=== PATIENT | female | born 1955 | race Caucasian/White ===

== ENCOUNTER → 2020-01-11 | Outpatient (CLI) | payer BC ==
--- NOTE | 2020-01-11 15:24 | RADIOLOGY REPORT (SQ) ---
EXAM DESCRIPTION: FOREARM LEFT COMPLETED DATE/TIME: 01/11/2020 1:23 pm REASON FOR STUDY: M79.609 PAIN IN UNSPECIFIED LIMB, R60.9 EDEMA, UNSPECIFIED, M79.609 PAIN IN UNSPE CIFIED LIMB R60.9 EDEMA, UNSPECIFIED COMPARISON: None. NUMBER OF VIEWS: Two views. TECHNIQUE: Two radiographic images acquired of the left forearm, including elbow and wrist in at [address] one projection. LIMITATIONS: None. FINDINGS: MINERALIZATION: Normal. BONES: No fracture identified. SOFT TISSUES: Likely anterior elbow joint effusion. No radiopaque foreign body. OTHER: No other significant finding. IMPRESSION: No evidence of acute bony abnormality. Apparent anterior elbow joint effusion which can be seen with occult radial head fractures. TECHNICAL DOCUMENTATION: JOB ID: [id number] 2010 [employer]- All Rights Reserved Reading location - IP/workstation name: [email or web address]
--- NOTE | 2020-01-11 15:27 | RADIOLOGY REPORT (SQ) ---
EXAM DESCRIPTION: ELBOW LEFT OVER 2 VIEWS IMAGES COMPLETED DATE/TIME: 01/11/2020 1:23 pm REASON FOR STUDY: M79.609 PAIN IN UNSPECIFIED LIMB, R60.9 EDEMA, UNSPECIFIED, M79.609 PAIN IN UNSPE CIFIED LIMB R60.9 EDEMA, UNSPECIFIED COMPARISON: None. NUMBER OF VIEWS: Four views. TECHNIQUE: AP, lateral, and both oblique radiographic images acquired of the left elbow. LIMITATIONS: None. FINDINGS: MINERALIZATION: Normal. BONES: Small calcific density along the lateral epicondyle without clear donor site. Possibly small fracture fragment or calcified joint body. JOINT: Prominent anterior joint effusion. SOFT TISSUES: No soft tissue swelling. No foreign body. OTHER: No other significant finding. IMPRESSION: Small calcific density along the lateral epicondyles without clear donor site. Findings may represent small fracture fragment versus calcified joint body. Significant anterior joint effus ion. TECHNICAL DOCUMENTATION: JOB ID: [id number] 2010 [employer]- All Rights Reserved Reading location - IP/workstation name: [email or web address]
--- NOTE | 2020-01-11 15:30 | RADIOLOGY REPORT (SQ) ---
EXAM DESCRIPTION: HUMERUS LEFT IMAGES COMPLETED DATE/TIME: 01/11/2020 1:23 pm REASON FOR STUDY: M79.609 PAIN IN UNSPECIFIED LIMB, R60.9 EDEMA, UNSPECIFIED, M79.609 PAIN IN UNSPE CIFIED LIMB R60.9 EDEMA, UNSPECIFIED COMPARISON: None. NUMBER OF VIEWS: Two views. TECHNIQUE: Two radiographic images were acquired of the left humerus to include elbow and shoulder i n at least one projection. LIMITATIONS: None. FINDINGS: MINERALIZATION: Normal. BONES: No definite fracture. Small ossification of the lateral epicondyle without clear donor site. Mild acromioclavicular osteophytosis. SOFT TISSUES: No obvious swelling or foreign body. OTHER: No other significant finding. IMPRESSION: Small ossific density along the lateral epicondyle, possibly small fracture fragment mayur jamaal degenerative change. TECHNICAL DOCUMENTATION: JOB ID: [id number] 2010 [employer]- All Rights Reserved Reading location - IP/workstation name: [email or web address]
== END ==
LOC: RAD 13:04
PROVIDERS: ATTEND Nurse Practitioner Family
DX: M79.609 Pain in unspecified limb (principal); R60.9 Edema, unspecified